=== PATIENT | male | born 1950 | race Caucasian/White ===

== ENCOUNTER → 2017-07-04 | Outpatient (CLI) | payer OTHER ==
--- NOTE | 2017-07-04 09:03 | KCIC ---
CT HEAD WO CONTRAST History: Headache, vertigo, old head trauma, headache behind the right eye for a few months Comparison: None. Technique: Noncontrast CT imaging was performed of the head. Exposure: One or more of the following individualized dose reduction techniques were utilized for this examination: 1. Automated exposure control 2. Adjustment of the mA and/or kV according to patient size 3. Use of iterative reconstruction technique. Findings: No acute extra-axial or parenchymal hemorrhage is identified. There is no significant intra-axial mass effect, midline shift, or extra-axial fluid collection. The alcantar-white differentiation of the major vascular territories is preserved. There is mild third and lateral ventriculomegaly, fourth ventricle not significantly dilated. The mastoid air cells and the visualized paranasal sinuses are aerated. No acute calvarial abnormality is identified. There is atherosclerotic calcification of the carotid siphons bilaterally. Impression: 1. There is no evidence of acute intracranial hemorrhage or intracranial mass effect. 2. There is mild third and lateral ventriculomegaly, could be due to component of mild more central involutional change unless suspicion for communicating hydrocephalus. Electronically signed by: Porter Cowart MD (07/04/2017 9:00 AM) [email or web address]
== END | disposition home or self-care (01) ==
LOC: KCIC CT 08:12
PROVIDERS: ATTEND Internal Medicine
DX: R42 Dizziness and giddiness (principal)
CPT/HCPCS: 70450